=== PATIENT | female | born 1945 | race Caucasian/White ===

== ENCOUNTER 2021-07-30 01:13 | Inpatient (IN) ==
[2021-07-30] MEDS ORDERED: ASPIRIN 325 MG TABLET PO STA (01:29)
[2021-07-30] MEDS ORDERED: SODIUM CHLORIDE 0.9% 1,000 ML IV STA (01:29)
[2021-07-30] MEDS ORDERED: DILTIAZEM 50 MG/10 ML VIAL IV STA (01:30)
[2021-07-30 01:57] LABS: Basophils % 0.2 % (0.0-0.8); Eosinophils # 0.2 10*3/uL (0.0-0.87); Hematocrit 27.8 VOL% (35.7-47.0); Hemoglobin 8.3 GM/DL (12.0-16.0); Immature Granulocytes % 0.3 %; Immature Granulocytes Absolute 0.05 #; Lymphocytes # 1.3 10*3/uL (1.4-4.0); Lymphocytes % 9.1 % (21.3-54.2); Mean Corpuscular HGB Conc 29.9 GM/DL (32-36); Mean Corpuscular Volume 78.5 FL (87-102); Mean Platelet Volume 11.5 FL (9.6-12.0); Monocytes % 8.8 % (1.7-12.7); Neutrophils % 80.6 % (38.7-73.9); Platelet Count 253 T/CUMM (130-400); Red Blood Count 3.54 MC/CUMM (3.8-5.5); Red Cell Distribution Width 16.4 % (9.3-17.3); White Blood Count 14.5 T/CUMM (4-12)
[2021-07-30 02:01] LABS: Bacteria,Urine Occasional /HPF (Few); Mucus,Urine Occasional /LPF (Occasional); RBC,Urine 3 /HPF (0-4); Squamous Epithelial Cell,Urine Occasional /HPF (0-10)
[2021-07-30 02:02] LABS: Bilirubin,Urine Negative (Negative); Blood, Urine Small mg/dL (Negative); Glucose,Urine (UA) >=1000 mg/dL (Negative); Ketones,Urine Negative (Negative); Nitrite,Urine Negative (Negative); Protein,Urine 30 MG/DL; Urine Appearance Clear (Clear); Urine Color Yellow (Yellow); Urine Specific Gravity 1.015 (1.001-1.035); Urine Urobilinogen 0.2 EU/DL (<2.0); Urine pH 5.5 (4.5-8.0)
[2021-07-30 02:09] LABS: INR 1.1; PT Patient Result 11.9 SECS (10.5-12.0); Partial Thromboplastin Time 33.8 SECS (23.8-32.1)
[2021-07-30 02:22] LABS: Albumin 3.1 G/DL (3.4-5.0); Bilirubin,Total 0.4 MG/DL (0.20-1.00); Calcium 8.6 MG/DL (8.5-10.1); Osmolality,Calculated 289.2 MOS/KG (273-304); Potassium 3.9 MMOL/L (3.5-5.1); Total Protein 7.2 G/DL (6.4-8.2)
[2021-07-30] MEDS ORDERED: NITROGLYCERIN SL 0.4 MG TABLET SL ONE (02:32)
[2021-07-30] MEDS ORDERED: ENOXAPARIN 30 MG/0.3 ML SYRINGE SUBCUT STA (02:38)
[2021-07-30] MEDS ORDERED: PIPERACILLIN/TAZOBACTAM 3,375 MG in SODIUM CHLORIDE 0.9% 100 ML IV STA (02:41)
[2021-07-30] MEDS ORDERED: ENOXAPARIN 80 MG/0.8 ML SYRINGE SUBCUT STA (02:43)
[2021-07-30] MEDS ORDERED: NITROGLYCERIN SL 0.4 MG TABLET SL STA (02:52)
[2021-07-30] MEDS ORDERED: INSULIN REGULAR 100 UNIT/ML IV STA (03:18)
[2021-07-30] MEDS ORDERED: DEXTROSE 10% 250 ML BAG IV PRN (03:20)
[2021-07-30] MEDS ORDERED: ACETAMINOPHEN 325 MG TABLET PO PRN (03:20)
[2021-07-30] MEDS ORDERED: NICOTINE 21 MG/24 HR PATCH TRANSDERM PRN (03:20)
[2021-07-30] MEDS ORDERED: hydrALAZINE 20 MG/1 ML VIAL IV PRN (03:20)
[2021-07-30] MEDS ORDERED: MORPHINE 4 MG/1 ML VIAL IV PRN (03:20)
[2021-07-30] MEDS ORDERED: GLUCAGON 1 MG VIAL IM PRN (03:20)
[2021-07-30] MEDS ORDERED: ONDANSETRON 4 MG/2 ML VIAL IV PRN (03:20)
[2021-07-30] MEDS ORDERED: IPRATROPIUM 500 MCG/2.5 ML NEB RESP TX STA (03:25)
[2021-07-30] MEDS ORDERED: LEVALBUTEROL 1.25 MG/3 ML NEB RESP TX STA (03:25)
[2021-07-30] MEDS: DILTIAZEM INJ 100 MG in SODIUM CHLORIDE 0.9% 100 ML IV SCH (05:03)
[2021-07-30 05:54] LABS: Ferritin 12.8 ng/mL (8-252)
[2021-07-30 06:27] LABS: Risk Ratio 2.33; Thyroid Stimulating Hormone 23.7 uIU/ml (0.358-3.74)
[2021-07-30 06:45] LABS: Folate 15.99 NG/ML (5.38-24.0)
[2021-07-30] MEDS: IPRATROPIUM 500 MCG/2.5 ML NEB RESP TX SCH ×3 (07:34→19:15)
[2021-07-30] MEDS: LEVALBUTEROL 1.25 MG/3 ML NEB RESP TX SCH ×3 (07:34→19:15)
[2021-07-30] MEDS: FUROSEMIDE 40 MG/4 ML VIAL IV SCH ×2 (07:44→18:47)
[2021-07-30] MEDS: AZITHROMYCIN INJ 500 MG in SODIUM CHLORIDE 0.9% 250 ML IV SCH (07:44)
[2021-07-30] MEDS: INSULIN LISPRO 100 UNIT/ML SUBCUT SCH ×4 (07:44→20:42)
[2021-07-30] MEDS ORDERED: NITROGLYCERIN SL 0.4 MG TABLET SL PRN (09:33)
[2021-07-30] MEDS ORDERED: PIPERACILLIN/TAZOBACTAM 3,375 MG in SODIUM CHLORIDE 0.9% 100 ML IV SCH (10:00)
[2021-07-30 11:14] LABS: Calcium 8.6 MG/DL (8.5-10.1); Potassium 3.8 MMOL/L (3.5-5.1)
[2021-07-30] MEDS: PANTOPRAZOLE 40 MG TABLET PO SCH (13:05)
[2021-07-30] MEDS: ENOXAPARIN 80 MG/0.8 ML SYRINGE SUBCUT SCH (17:14)
[2021-07-30] MEDS: carvediloL 12.5 MG TABLET PO SCH (20:40)
[2021-07-30] MEDS: INSULIN GLARGINE 100 UNIT/ML SUBCUT SCH (20:41)
[2021-07-30] MEDS: cloNIDine 0.1 MG TABLET PO SCH (20:41)
[2021-07-31] MEDS: LEVALBUTEROL 1.25 MG/3 ML NEB RESP TX SCH ×3 (00:45→19:32)
[2021-07-31] MEDS: IPRATROPIUM 500 MCG/2.5 ML NEB RESP TX SCH ×3 (00:45→19:32)
[2021-07-31] MEDS: ENOXAPARIN 80 MG/0.8 ML SYRINGE SUBCUT SCH ×2 (02:32→16:07)
[2021-07-31] MEDS: DILTIAZEM INJ 100 MG in SODIUM CHLORIDE 0.9% 100 ML IV SCH (02:42)
[2021-07-31 05:15] LABS: Basophils % 0.5 % (0.0-0.8); Eosinophils % 0.5 % (0.00-10.9); Hematocrit 21.4 VOL% (35.7-47.0); Immature Granulocytes % 0.7 %; Immature Granulocytes Absolute 0.04 #; Lymphocytes # 1.4 10*3/uL (1.4-4.0); Lymphocytes % 23.8 % (21.3-54.2); Mean Corpuscular HGB Conc 30.4 GM/DL (32-36); Mean Corpuscular Volume 77.8 FL (87-102); Mean Platelet Volume 11.5 FL (9.6-12.0); Neutrophils % 62.5 % (38.7-73.9); Platelet Count 178 T/CUMM (130-400); Red Blood Count 2.75 MC/CUMM (3.8-5.5); Red Cell Distribution Width 16.4 % (9.3-17.3); White Blood Count 5.9 T/CUMM (4-12)
[2021-07-31 05:18] LABS: Hemoglobin 6.5 GM/DL (12.0-16.0)
[2021-07-31 05:26] LABS: Calcium 8.4 MG/DL (8.5-10.1); Osmolality,Calculated 279.8 MOS/KG (273-304); Potassium 3.7 MMOL/L (3.5-5.1)
[2021-07-31 05:29] LABS: Eosinophils 1 % (0-10); Hypochromia 2+; Lymphocytes 18 % (20-55); Microcytosis 1+; Platelet Estimate Adequate; Segmented Neutrophils 76 % (50-85); Total Cells Counted 100
[2021-07-31] MEDS: LEVOTHYROXINE 150 MCG TABLET PO SCH (05:48)
[2021-07-31] MEDS: AZITHROMYCIN INJ 500 MG in SODIUM CHLORIDE 0.9% 250 ML IV SCH (06:08)
[2021-07-31] MEDS ORDERED: SODIUM CHLORIDE 0.9% 1,000 ML IV PRN (06:16)
[2021-07-31] MEDS ORDERED: metOLazone 5 MG TABLET PO SCH (06:30)
[2021-07-31] MEDS: FUROSEMIDE 40 MG/4 ML VIAL IV SCH ×2 (06:48→18:31)
[2021-07-31] MEDS ORDERED: LEVOTHYROXINE 100 MCG TABLET PO SCH (07:00)
[2021-07-31] MEDS: INSULIN LISPRO 100 UNIT/ML SUBCUT SCH ×4 (08:44→21:03)
[2021-07-31] MEDS: ASPIRIN EC 81 MG TABLET PO SCH (08:53)
[2021-07-31] MEDS: SIMVASTATIN 40 MG TABLET PO SCH (08:54)
[2021-07-31] MEDS: PANTOPRAZOLE 40 MG TABLET PO SCH (08:54)
[2021-07-31] MEDS: carvediloL 12.5 MG TABLET PO SCH ×2 (08:54→21:02)
[2021-07-31] MEDS: FERRIC GLUCONATE COMPLEX 125 MG in SODIUM CHLORIDE 0.9% 100 ML IV SCH (08:55)
[2021-07-31] MEDS: INSULIN GLARGINE 100 UNIT/ML SUBCUT SCH ×2 (08:55→21:03)
[2021-07-31] MEDS ORDERED: ASPIRIN EC 325 MG TABLET PO SCH (09:00)
[2021-07-31] MEDS ORDERED: IRON SUCROSE 200 MG in SODIUM CHLORIDE 0.9% 100 ML IV SCH (09:00)
[2021-07-31] MEDS: cloNIDine 0.1 MG TABLET PO SCH (21:02)
[2021-08-01] MEDS: LEVALBUTEROL 1.25 MG/3 ML NEB RESP TX SCH ×4 (01:37→19:22)
[2021-08-01] MEDS: IPRATROPIUM 500 MCG/2.5 ML NEB RESP TX SCH ×4 (01:37→19:22)
[2021-08-01] MEDS: ENOXAPARIN 80 MG/0.8 ML SYRINGE SUBCUT SCH ×2 (02:15→14:59)
[2021-08-01] MEDS: DILTIAZEM INJ 100 MG in SODIUM CHLORIDE 0.9% 100 ML IV SCH (03:49)
[2021-08-01] MEDS: FUROSEMIDE 40 MG/4 ML VIAL IV SCH (06:11)
[2021-08-01] MEDS: AZITHROMYCIN INJ 500 MG in SODIUM CHLORIDE 0.9% 250 ML IV SCH (06:11)
[2021-08-01] MEDS: LEVOTHYROXINE 150 MCG TABLET PO SCH (06:11)
[2021-08-01 07:54] LABS: Basophils # 0.1 10*3/uL (0.0-0.2); Basophils % 0.5 % (0.0-0.8); Eosinophils # 0.3 10*3/uL (0.0-0.87); Eosinophils % 2.5 % (0.00-10.9); Hematocrit 29.3 VOL% (35.7-47.0); Immature Granulocytes % 0.4 %; Immature Granulocytes Absolute 0.04 #; Lymphocytes % 20.5 % (21.3-54.2); Mean Corpuscular HGB Conc 30.7 GM/DL (32-36); Mean Corpuscular Volume 77.9 FL (87-102); Monocytes % 11.3 % (1.7-12.7); Neutrophils % 64.8 % (38.7-73.9); Platelet Count 268 T/CUMM (130-400); Red Blood Count 3.76 MC/CUMM (3.8-5.5); Red Cell Distribution Width 16.8 % (9.3-17.3); White Blood Count 9.9 T/CUMM (4-12)
[2021-08-01 08:16] LABS: Eosinophils 2 % (0-10); Lymphocytes 13 % (20-55); Segmented Neutrophils 76 % (50-85); Total Cells Counted 100
[2021-08-01 08:17] LABS: Hypochromia 1+; Microcytosis 1+; Platelet Estimate Adequate
[2021-08-01] MEDS: INSULIN LISPRO 100 UNIT/ML SUBCUT SCH ×4 (08:19→20:27)
[2021-08-01 08:26] LABS: Calcium 8.8 MG/DL (8.5-10.1); Osmolality,Calculated 277.7 MOS/KG (273-304)
[2021-08-01] MEDS ORDERED: INSULIN GLARGINE 100 UNIT/ML SUBCUT SCH (09:00)
[2021-08-01] MEDS: carvediloL 12.5 MG TABLET PO SCH ×2 (09:43→20:27)
[2021-08-01] MEDS: ASPIRIN EC 81 MG TABLET PO SCH (09:43)
[2021-08-01] MEDS: SIMVASTATIN 40 MG TABLET PO SCH (09:43)
[2021-08-01] MEDS: PANTOPRAZOLE 40 MG TABLET PO SCH (09:43)
[2021-08-01] MEDS: FERRIC GLUCONATE COMPLEX 125 MG in SODIUM CHLORIDE 0.9% 100 ML IV SCH (09:47)
[2021-08-01] MEDS: POTASSIUM CHLORIDE 20 MEQ TABLET PO PRN ×4 (10:34→16:19)
[2021-08-01] MEDS: FUROSEMIDE 40 MG TABLET PO SCH (16:19)
[2021-08-01] MEDS: INSULIN GLARGINE 100 UNIT/ML SUBCUT SCH (20:27)
[2021-08-01] MEDS: cloNIDine 0.1 MG TABLET PO SCH (20:27)
[2021-08-02] MEDS: IPRATROPIUM 500 MCG/2.5 ML NEB RESP TX SCH ×2 (00:44→07:30)
[2021-08-02] MEDS: LEVALBUTEROL 1.25 MG/3 ML NEB RESP TX SCH ×2 (00:44→07:30)
[2021-08-02] MEDS: ENOXAPARIN 80 MG/0.8 ML SYRINGE SUBCUT SCH (02:00)
[2021-08-02] MEDS: DILTIAZEM INJ 100 MG in SODIUM CHLORIDE 0.9% 100 ML IV SCH (04:42)
[2021-08-02 05:10] LABS: Basophils # 0.1 10*3/uL (0.0-0.2); Basophils % 0.7 % (0.0-0.8); Eosinophils # 0.3 10*3/uL (0.0-0.87); Eosinophils % 2.4 % (0.00-10.9); Hematocrit 30.4 VOL% (35.7-47.0); Hemoglobin 9.3 GM/DL (12.0-16.0); Immature Granulocytes % 0.8 %; Immature Granulocytes Absolute 0.09 #; Mean Corpuscular HGB Conc 30.6 GM/DL (32-36); Mean Corpuscular Volume 76.8 FL (87-102); Monocytes % 13.1 % (1.7-12.7); Platelet Count 272 T/CUMM (130-400); Red Blood Count 3.96 MC/CUMM (3.8-5.5); White Blood Count 10.7 T/CUMM (4-12)
[2021-08-02 05:28] LABS: Calcium 9.1 MG/DL (8.5-10.1)
[2021-08-02 05:29] LABS: Osmolality,Calculated 279.7 MOS/KG (273-304)
[2021-08-02] MEDS: LEVOTHYROXINE 150 MCG TABLET PO SCH (05:30)
[2021-08-02] MEDS: AZITHROMYCIN INJ 500 MG in SODIUM CHLORIDE 0.9% 250 ML IV SCH (06:00)
[2021-08-02] MEDS ORDERED: POTASSIUM CHLORIDE 20 MEQ TABLET PO ONE ×2 (07:54→12:18)
[2021-08-02] MEDS: SIMVASTATIN 40 MG TABLET PO SCH (09:43)
[2021-08-02] MEDS: ASPIRIN EC 81 MG TABLET PO SCH (09:43)
[2021-08-02] MEDS: FUROSEMIDE 40 MG TABLET PO SCH (09:43)
[2021-08-02] MEDS: carvediloL 12.5 MG TABLET PO SCH (09:43)
[2021-08-02] MEDS: INSULIN LISPRO 100 UNIT/ML SUBCUT SCH ×2 (09:44→13:04)
[2021-08-02] MEDS: PANTOPRAZOLE 40 MG TABLET PO SCH (09:44)
[2021-08-02] MEDS: INSULIN GLARGINE 100 UNIT/ML SUBCUT SCH (09:44)
[2021-08-02] MEDS: FERRIC GLUCONATE COMPLEX 125 MG in SODIUM CHLORIDE 0.9% 100 ML IV SCH (11:05)
[2021-08-02 14:17] VITALS: BP 132/74
== END 2021-08-02 14:01 | disposition home or self-care (01) | DRG 280 ==
LOC: N.ED 01:13 → N.EDINP 03:20 → SUATTDRO 03:20 → N.TELEN 13:39
PROVIDERS: ADMIT Emergency Medicine; ATTEND Internal Medicine

== ENCOUNTER 2021-11-15 08:57 | Inpatient (IN) ==
[2021-11-15] MEDS ORDERED: SODIUM CHLORIDE 0.9% 1,000 ML IV STA (09:24)
[2021-11-15] MEDS ORDERED: SODIUM CHLORIDE 0.9% 1,000 ML IV PRN (09:47)
[2021-11-15] MEDS ORDERED: LEVOFLOXACIN INJ 500 MG/100 ML PREMIX IV STA (09:47)
[2021-11-15 10:04] LABS: Basophils % 0.3 % (0.0-0.8); Eosinophils % 0.2 % (0.00-10.9); Hematocrit 27.7 VOL% (35.7-47.0); Hemoglobin 8.3 GM/DL (12.0-16.0); Immature Granulocytes % 0.2 %; Immature Granulocytes Absolute 0.01 #; Lymphocytes # 1.1 10*3/uL (1.4-4.0); Lymphocytes % 17.2 % (21.3-54.2); Mean Corpuscular Volume 87.4 FL (87-102); Mean Platelet Volume 10.1 FL (9.6-12.0); Monocytes # 0.4 10*3/uL (0.11-0.8); Monocytes % 5.8 % (1.7-12.7); Neutrophils % 76.3 % (38.7-73.9); Platelet Count 219 T/CUMM (130-400); Red Blood Count 3.17 MC/CUMM (3.8-5.5); Red Cell Distribution Width 18.2 % (9.3-17.3); White Blood Count 6.6 T/CUMM (4-12)
[2021-11-15 10:13] LABS: PT Patient Result 11.3 SECS (10.5-12.0); Partial Thromboplastin Time 29.2 SECS (23.7-32.9)
[2021-11-15 10:24] LABS: Albumin 3.5 G/DL (3.4-5.0); Bilirubin,Total 0.6 MG/DL (0.20-1.00); Calcium 9.2 MG/DL (8.5-10.1); Osmolality,Calculated 276.4 MOS/KG (273-304); Potassium 3.4 MMOL/L (3.5-5.1); Total Protein 7.2 G/DL (6.4-8.2)
[2021-11-15] MEDS ORDERED: ONDANSETRON 4 MG/2 ML VIAL IV PRN (11:08)
[2021-11-15] MEDS ORDERED: GLUCAGON 1 MG VIAL IM PRN (11:08)
[2021-11-15] MEDS ORDERED: DEXTROSE 10% 250 ML BAG IV PRN (11:15)
[2021-11-15] MEDS ORDERED: FLUTICASONE 50 MCG NASAL SPRAY 16 GM BOTTLE BOTH NARES PRN (11:27)
[2021-11-15] MEDS ORDERED: NITROGLYCERIN SL 0.4 MG TABLET SL PRN (11:27)
[2021-11-15] MEDS: SODIUM CHLORIDE 0.9% 1,000 ML IV SCH (11:53)
[2021-11-15] MEDS: INSULIN LISPRO 100 UNIT/ML SUBCUT SCH ×2 (12:27→18:50)
[2021-11-15 16:55] LABS: Hematocrit 25.4 VOL% (35.7-47.0); Hemoglobin 7.6 GM/DL (12.0-16.0)
[2021-11-15] MEDS: ACETAMINOPHEN 325 MG TABLET PO PRN (18:52)
[2021-11-15] MEDS: PANTOPRAZOLE 40 MG TABLET PO SCH (22:19)
[2021-11-15] MEDS: SIMVASTATIN 40 MG TABLET PO SCH (22:20)
[2021-11-15] MEDS: cloNIDine 0.1 MG TABLET PO SCH (22:20)
[2021-11-15] MEDS: POLYETHYLENE GLYCOL POWDER 17 GM PACK PO SCH (22:20)
[2021-11-15] MEDS: carvediloL 25 MG TABLET PO SCH (22:20)
[2021-11-15] MEDS: INSULIN GLARGINE 100 UNIT/ML SUBCUT SCH (22:25)
[2021-11-15] MEDS: POTASSIUM CHLORIDE RIDER 10 MEQ/100 ML PREMIX IV PRN ×2 (22:47→23:51)
[2021-11-16 00:16] LABS: Hematocrit 24.5 VOL% (35.7-47.0); Hemoglobin 7.4 GM/DL (12.0-16.0)
[2021-11-16] MEDS: POTASSIUM CHLORIDE RIDER 10 MEQ/100 ML PREMIX IV PRN (00:55)
[2021-11-16] MEDS: INSULIN LISPRO 100 UNIT/ML SUBCUT SCH ×5 (00:56→23:33)
[2021-11-16] MEDS: ACETAMINOPHEN 325 MG TABLET PO PRN (00:58)
[2021-11-16] MEDS: SODIUM CHLORIDE 0.9% 1,000 ML IV SCH ×2 (04:38→23:35)
[2021-11-16 05:07] LABS: Basophils % 0.6 % (0.0-0.8); Eosinophils # 0.1 10*3/uL (0.0-0.87); Eosinophils % 1.3 % (0.00-10.9); Hematocrit 23.8 VOL% (35.7-47.0); Hemoglobin 7.1 GM/DL (12.0-16.0); Immature Granulocytes % 0.3 %; Immature Granulocytes Absolute 0.02 #; Lymphocytes # 1.9 10*3/uL (1.4-4.0); Lymphocytes % 30.2 % (21.3-54.2); Mean Corpuscular HGB Conc 29.8 GM/DL (32-36); Mean Corpuscular Volume 88.1 FL (87-102); Mean Platelet Volume 10.4 FL (9.6-12.0); Monocytes # 0.9 10*3/uL (0.11-0.8); Monocytes % 13.7 % (1.7-12.7); NRBC # 0.02 10*3/uL; Neutrophils % 53.9 % (38.7-73.9); Platelet Count 199 T/CUMM (130-400); Red Cell Distribution Width 18.3 % (9.3-17.3); White Blood Count 6.2 T/CUMM (4-12)
[2021-11-16 05:32] LABS: Alanine Aminotransferase 22 U/L (13-56); Albumin 2.6 G/DL (3.4-5.0); Alkaline Phosphatase 82 U/L (45-117); Aspartate Amino Transferase 21 U/L (0-37); Bilirubin,Total < 0.39 MG/DL (0.20-1.00); Blood Urea Nitrogen 32 MG/DL (7-18); Calcium 8.4 MG/DL (8.5-10.1); Carbon Dioxide 18 MMOL/L (21-32); Chloride 108 MMOL/L (98-107); Glucose 91 MG/DL (74-106); Potassium 4.1 MMOL/L (3.5-5.1); Sodium 136 MMOL/L (136-145); Total Protein 6.1 G/DL (6.4-8.2)
[2021-11-16] MEDS: LEVOTHYROXINE 100 MCG TABLET PO SCH (06:30)
[2021-11-16 08:23] LABS: Hematocrit 24.8 VOL% (35.7-47.0); Hemoglobin 7.4 GM/DL (12.0-16.0)
[2021-11-16] MEDS ORDERED: SODIUM CHLORIDE 0.9% 1,000 ML IV PRN (08:43)
[2021-11-16] MEDS: INSULIN GLARGINE 100 UNIT/ML SUBCUT SCH ×2 (08:57→21:10)
[2021-11-16] MEDS: cefTRIAXone 1,000 MG in SODIUM CHLORIDE 0.9% 100 ML IV SCH (08:58)
[2021-11-16] MEDS: carvediloL 25 MG TABLET PO SCH ×2 (08:58→21:10)
[2021-11-16] MEDS: DILTIAZEM CD 120 MG CAPSULE PO SCH (08:58)
[2021-11-16] MEDS: POLYETHYLENE GLYCOL POWDER 17 GM PACK PO SCH (08:59)
[2021-11-16] MEDS: PANTOPRAZOLE 40 MG TABLET PO SCH ×2 (08:59→21:10)
[2021-11-16] MEDS: AZITHROMYCIN INJ 500 MG in SODIUM CHLORIDE 0.9% 250 ML IV SCH (14:02)
[2021-11-16] MEDS ORDERED: POLYETHYLENE GLYCOL POWDER 255 GM BOTTLE PO ONE (18:00)
[2021-11-16 19:07] LABS: Hemoglobin 9.2 GM/DL (12.0-16.0)
[2021-11-16] MEDS ORDERED: MAGNESIUM CITRATE 300 ML BOTTLE PO ONE (21:00)
[2021-11-16] MEDS: MELATONIN 3 MG TABLET PO PRN (21:10)
[2021-11-16] MEDS: cloNIDine 0.1 MG TABLET PO SCH (21:10)
[2021-11-16] MEDS: SIMVASTATIN 40 MG TABLET PO SCH (21:10)
[2021-11-17 05:01] LABS: Basophils % 0.5 % (0.0-0.8); Eosinophils # 0.1 10*3/uL (0.0-0.87); Hemoglobin 8.4 GM/DL (12.0-16.0); Immature Granulocytes % 0.3 %; Immature Granulocytes Absolute 0.02 #; Lymphocytes # 1.7 10*3/uL (1.4-4.0); Lymphocytes % 27.5 % (21.3-54.2); Mean Corpuscular HGB Conc 31.1 GM/DL (32-36); Mean Corpuscular Volume 86.3 FL (87-102); Mean Platelet Volume 10.1 FL (9.6-12.0); Monocytes # 0.7 10*3/uL (0.11-0.8); Monocytes % 10.6 % (1.7-12.7); Neutrophils % 59.1 % (38.7-73.9); Platelet Count 175 T/CUMM (130-400); Red Blood Count 3.13 MC/CUMM (3.8-5.5); Red Cell Distribution Width 17.6 % (9.3-17.3); White Blood Count 6.1 T/CUMM (4-12)
[2021-11-17 05:05] LABS: INR 1.1; PT Patient Result 12.4 SECS (10.5-12.0)
[2021-11-17 05:13] LABS: Calcium 8.6 MG/DL (8.5-10.1); Osmolality,Calculated 282.3 MOS/KG (273-304)
[2021-11-17] MEDS: POTASSIUM CHLORIDE RIDER 10 MEQ/100 ML PREMIX IV PRN ×5 (05:54→18:43)
[2021-11-17] MEDS: INSULIN LISPRO 100 UNIT/ML SUBCUT SCH ×3 (06:03→18:32)
[2021-11-17] MEDS: LEVOTHYROXINE 100 MCG TABLET PO SCH (06:03)
[2021-11-17] MEDS ORDERED: LACTATED RINGERS 1,000 ML IV SCH (08:00)
[2021-11-17] MEDS ORDERED: hydrALAZINE 20 MG/1 ML VIAL IV PRN (08:19)
[2021-11-17] MEDS: INSULIN GLARGINE 100 UNIT/ML SUBCUT SCH ×2 (10:06→21:33)
[2021-11-17] MEDS ORDERED: LABETALOL 20 MG/4 ML SYRINGE IV ONE (11:22)
[2021-11-17] MEDS ORDERED: LIDOCAINE 2% 5 ML VIAL ONE (13:01)
[2021-11-17] MEDS ORDERED: propofoL 200 MG/20 ML VIAL IV ONE (13:01)
[2021-11-17] MEDS: DILTIAZEM CD 120 MG CAPSULE PO SCH (14:17)
[2021-11-17] MEDS: PANTOPRAZOLE 40 MG TABLET PO SCH ×2 (14:17→21:32)
[2021-11-17] MEDS: carvediloL 25 MG TABLET PO SCH ×2 (14:17→21:32)
[2021-11-17] MEDS: ACETAMINOPHEN 325 MG TABLET PO PRN (18:44)
[2021-11-17] MEDS: SODIUM CHLORIDE 0.9% 1,000 ML IV SCH (18:46)
[2021-11-17] MEDS: AZITHROMYCIN INJ 500 MG in SODIUM CHLORIDE 0.9% 250 ML IV SCH (19:19)
[2021-11-17] MEDS: cefTRIAXone 1,000 MG in SODIUM CHLORIDE 0.9% 100 ML IV SCH (19:19)
[2021-11-17] MEDS ORDERED: TERAZOSIN 2 MG CAPSULE PO SCH (21:00)
[2021-11-17] MEDS ORDERED: LISINOPRIL/HCTZ 20-12.5 MG TABLET PO SCH (21:00)
[2021-11-17] MEDS: cloNIDine 0.1 MG TABLET PO SCH (21:32)
[2021-11-17] MEDS: SIMVASTATIN 40 MG TABLET PO SCH (21:32)
[2021-11-17] MEDS ORDERED: TERAZOSIN 1 MG CAPSULE PO SCH (22:30)
[2021-11-18] MEDS: INSULIN LISPRO 100 UNIT/ML SUBCUT SCH ×3 (00:56→11:39)
[2021-11-18] MEDS: MELATONIN 3 MG TABLET PO PRN (00:56)
[2021-11-18 05:36] LABS: Basophils # 0.1 10*3/uL (0.0-0.2); Basophils % 0.7 % (0.0-0.8); Eosinophils # 0.2 10*3/uL (0.0-0.87); Eosinophils % 1.8 % (0.00-10.9); Hematocrit 28.8 VOL% (35.7-47.0); Hemoglobin 8.8 GM/DL (12.0-16.0); Immature Granulocytes % 0.5 %; Immature Granulocytes Absolute 0.04 #; Lymphocytes % 23.4 % (21.3-54.2); Mean Corpuscular HGB Conc 30.6 GM/DL (32-36); Mean Corpuscular Volume 85.2 FL (87-102); Mean Platelet Volume 10.5 FL (9.6-12.0); Monocytes # 0.9 10*3/uL (0.11-0.8); Monocytes % 10.3 % (1.7-12.7); Neutrophils % 63.3 % (38.7-73.9); Platelet Count 230 T/CUMM (130-400); Red Blood Count 3.38 MC/CUMM (3.8-5.5); Red Cell Distribution Width 17.6 % (9.3-17.3); White Blood Count 8.5 T/CUMM (4-12)
[2021-11-18 05:54] LABS: Calcium 8.8 MG/DL (8.5-10.1); Osmolality,Calculated 280.3 MOS/KG (273-304); Potassium 3.5 MMOL/L (3.5-5.1)
[2021-11-18] MEDS: LEVOTHYROXINE 100 MCG TABLET PO SCH (05:55)
[2021-11-18 07:32] VITALS: BP 176/79
[2021-11-18] MEDS: SODIUM CHLORIDE 0.9% 1,000 ML IV SCH (09:08)
[2021-11-18] MEDS: INSULIN GLARGINE 100 UNIT/ML SUBCUT SCH (09:09)
[2021-11-18] MEDS ORDERED: POTASSIUM CHLORIDE 20 MEQ TABLET PO ONE (10:00)
[2021-11-18] MEDS: PANTOPRAZOLE 40 MG TABLET PO SCH (10:33)
[2021-11-18] MEDS: cefTRIAXone 1,000 MG in SODIUM CHLORIDE 0.9% 100 ML IV SCH (10:34)
[2021-11-18] MEDS: carvediloL 25 MG TABLET PO SCH (10:34)
[2021-11-18] MEDS: DILTIAZEM CD 120 MG CAPSULE PO SCH (10:35)
[2021-11-18] MEDS: AZITHROMYCIN INJ 500 MG in SODIUM CHLORIDE 0.9% 250 ML IV SCH (11:48)
[2021-11-19] MEDS ORDERED: ASPIRIN EC 81 MG TABLET PO SCH (09:00)
== END 2021-11-18 15:14 | disposition home or self-care (01) | DRG 377 ==
LOC: N.EDINP 08:57 → N.ED 08:57 → SUATTDRO 13:03 → N.5E 14:17
PROVIDERS: ADMIT Internal Medicine Geriatric Medicine; ATTEND Internal Medicine